=== PATIENT | female | born 1975 | race Hispanic/Latino ===

== ENCOUNTER 2024-07-12 21:45 | Emergency (ER) | payer BC, SELFPAY ==
[2024-07-12 21:49] VITALS: BP 110/66
[2024-07-12 22:05] LABS: % Basophils 0.3 % (0-2); % Eosinophils 0.8 % (0-6); % Immature Granulocytes 0.2 % (0-0.5); % Lymphocytes 35.4 % (20.5-51.1); % Monocytes 6.2 % (1.7-9.3); % Neutrophils 57.1 % (42.2-75.2); Absolute Eosinophils 0.1 10^3/uL (0-0.7); Absolute Lymphocytes 2.4 10^3/uL (1.2-3.4); Absolute Monocytes 0.4 10^3/uL (0.1-0.6); Absolute Neutrophils 3.8 10^3/uL (1.4-6.5); Hematocrit 36.7 % (37.0-47.0); Hemoglobin 12.2 g/dL (12.0-16.0); Mean Corp Hgb Conc. 33.2 g/dL (33.0-37.0); Mean Corpuscular Volume 93.1 fL (81.0-99.0); Nucleated Red Blood Cells % 0 %; Platelet Count 227 10^3/uL (130-400); Red Blood Cell Count 3.94 10^6/uL (4.20-5.40); White Blood Cell Count 6.6 10^3/uL (4.8-10.8)
[2024-07-12 22:23] LABS: HCG, Serum Qualitative Screen Negative
[2024-07-12 22:28] LABS: ALT (SGPT) 12 U/L (0-35); AST (SGOT) 18 U/L (14-36); Albumin 4.3 g/dl (3.5-5.0); Alkaline Phosphatase 50 U/L (38-126); Blood Urea Nitrogen 21 mg/dl (7-17); Calcium 9.4 mg/dl (8.4-10.2); Carbon Dioxide 28 mmol/L (22-30); Chloride 107 mmol/L (98-107); Glucose 120 mg/dl (70-99); Potassium 4.1 mmol/L (3.5-5.1); Sodium 141 mmol/L (135-145); Total Bilirubin 0.3 mg/dl (0.2-1.3); Total Protein 7.3 g/dl (6.3-8.2); eGFR > 60.00
[2024-07-13 00:26] VITALS: BMI 19.7
[2024-07-13 00:28] VITALS: BP 105/53
--- NOTE | 2024-07-13 00:42 | ED.GENMED ---
History of Present Illness
General
Chief Complaint: Vaginal Bleeding
Source: patient
Exam Limitations: none
Time Seen by Provider: 07/13/24 00:37
Nursing documentation reviewed up to this point in time: agreed with
History of Present Illness
History of Present Illness:
48-year-old female with a past medical history anxiety presents emergency department today with concerns of heavy vaginal bleeding x 1 day. Patient reports that she is premenopausal however she does state that she has somewhat regular periods with
cycle day of 28 and reports that she sees Dr. Dickerson for her OBGYN care. Patient reports that starting a few months ago, her periods have been a lot heavier. Patient was given TXA by her ACETALDEHYDE CONVERTER OPERATOR use as needed during her heavier periods. Patient
does report that this did help for some time however the last period that she had, this did not help with the heavy bleeding. Patient was then started on an estrogen patch patch as well as progesterone pills and she states that she started her
period today and the bleeding is just as heavier as it has been before. Patient does have some mild cramping associated with this. She denies any lightheadedness, dizziness. She denies any history of anemia. Patient is unsure of how many pads
she is changing in an hour.
Review of Systems
Review of Systems
All Other Systems: ROS reviewed and negative except as documented in HPI and ROS
Phy Exam
Physical Exam
Physical Exam:
General: Patient is well appearing and in no acute distress; non-toxic
Skin: Warm and dry, no rashes or lesions
Head: Normocephalic, atraumatic
Eyes: Sclera non-icteric. EOMs intact.
Cardiac: Regular rate and rhythm, no murmurs
Pulm: Normal respiratory effort
Abdomen: No abdominal tenderness to palpation
Genitourinary: No lesions of the external genitalia. [place] vaginal mucosa with no lesions. Bleeding noted within vaginal vault.
Neuro: CN II-XII intact, no focal neurologic deficits.
Psychiatric: Appropriate mood and affect.
Course
Orders/Labs/Results
Orders:
Orders
07/12/24 21:53
Test Result ONCE
07/12/24 21:58
Type+Screen Urgent
Complete Blood Count/With Diff Urgent
Comprehensive Metabolic Panel Urgent
HCG, Serum Qualitative Screen Urgent
07/12/24 22:11
ABO2 Urgent
BBK Wristband Number:
Associate notified that ABO2 has been ordered: [id number]
Date: 07/12/24
Time: 22:07
Coil Cutter ID: [id number]
07/13/24 01:03
US Transvaginal [US Pelvis W Transvag Combined] Urgent
Comment:
Reason For Exam: left sided pelvic pain
Abnormal Lab Results
07/12/24
21:58
RBC 3.94 L 10^6/uL
(4.20-5.40)
Hct 36.7 L %
(37.0-47.0)
MPV 11.0 H fL
(7.4-10.4)
BUN 21 H mg/dl
(7-17)
Glucose 120 H mg/dl
(70-99)
07/12/24 21:58
07/12/24 21:58
Vital Signs
Initial and Last Documented VS:
Initial Vital Signs
Temp Pulse Resp BP Pulse Ox
98.5 F 78 16 110/66 98
07/12/24 21:49 07/12/24 21:49 07/12/24 21:49 07/12/24 21:49 07/12/24 21:49
Last Documented Vital Signs
Temp Pulse Resp BP Pulse Ox
98.5 F 70 16 128/70 100
07/12/24 21:49 07/13/24 03:30 07/13/24 03:30 07/13/24 03:30 07/13/24 03:30
MDM/Problems Addressed
Differential Diagnosis Includes:
Differentials include menorrhagia, perimenopausal state, endometrial hyperplasia, uterine fibroid, ectopic , hemorrhagic cyst, malignancy
MDM/Problems Addressed:
48-year-old female with a past medical history anxiety presents emergency department today with concerns of heavy vaginal bleeding x 1 day. Patient reports that she is premenopausal however she does state that she has somewhat regular periods with
cycle day of 28 and reports that she sees Dr. Dickerson for her OBGYN care. She noted the start of her period today her heavy bleeding continued and was not improved with the progesterone. She does have a known fibroid and was concerned that it
could have grown in size. On physical exam she is well-appearing no acute distress her vitals are stable, she does have bleeding noted within the vaginal vault. Her hemoglobin is within normal limits. Her CMP is unremarkable. She is not
. Her transvaginal ultrasound reveals a fibroid causing mass effect on the cervical canal. Reviewed case with physician on-call from [facility] who has no additional recommendations at this time considering patient is already on
progesterone and recommends that patient call her ACETALDEHYDE CONVERTER OPERATOR as soon as office opens. On reassessment, patient is well-appearing, she continues to have heavy bleeding, I did want to recheck CBC to monitor hemoglobin however patient states that she does
not want any additional blood work and wants to go home and continue monitor her symptoms and she states that she will call her ACETALDEHYDE CONVERTER OPERATOR. I think this is reasonable. Patient is stable for discharge.
*Pulse Oximetry
Patient hypoxic: no
*Critical Care Note
Total Time (30-74mins, 75-104mins- exclusive of procedures): Not Applicable
Data Reviewed
Review of Other/Old Records Reveals: Records (No prior ER physician documentation or discharge summaries to review)
ED Attending Note
-
Portions of this chart may have been created with voice recognition software.� Occasional wrong word or��sound alike� substitutions may have occurred due to the inherent limitations of voice recognition software.
Discharge Plan
Departure
Patient Disposition: Home (Routine Discharge)
Date of Disposition: 07/13/24
Time of Disposition: 03:50
Patient with high blood pressure during this ER visit?: No
Condition: Good
Discharge Problem:
Perimenopausal menorrhagia, Uterine fibroid
Instructions: Uterine fibroids, Heavy periods - ED discharge instructions, BLOOD PRESSURE
Referrals:
Jaspreet Vega MD [Family Provider] -
Stand Alone Forms: Return to Work
Activity Restrictions/Additional Instructions:
Please call your ACETALDEHYDE CONVERTER OPERATOR office in the morning to schedule a follow-up appointment. Please show them ultrasound findings.
Please continue taking your progesterone as directed by your ACETALDEHYDE CONVERTER OPERATOR.
PLEASE RETURN EMERGENCY DEPARTMENT SHOULD YOU DEVELOP LIGHTHEADEDNESS, DIZZINESS, AND ACUTE WORSENING OF YOUR PAIN, BURNING WITH URINATION, CHEST PAIN, SHORTNESS OF BREATH, OR ANY OTHER SIGNS OR SYMPTOMS WORRISOME TO YOU.
Interventions
Interventions:
*Risk Screen - Suicide Last Done: 07/12/24 21:54
*General Assessment Last Done: 07/13/24 00:24
*Neglect/Abuse Screening Last Done: 07/12/24 21:54
*ED- Fall Risk Assessment Last Done: 07/13/24 00:23
*ED COVID-19 Vaccine History Last Done: 07/13/24 00:23
*Nursing Disposition Last Done: 07/13/24 03:55
ED-Female Genitourinary Assessment Last Done: 07/13/24 03:25
Discharge Date and Time
Discharge Date/Time: 07/13/24 03:55
Print Language: YI
[2024-07-13 02:32] VITALS: BP 100/58
[2024-07-13 03:30] VITALS: BP 128/70
== END 2024-07-13 03:55 | disposition home or self-care (01) ==
LOC: EMR 21:45
PROVIDERS: EMERGENCY PHYSICIAN Emergency Medicine; FAMILY PHYSICIAN Family Medicine
DX: N92.4 Excessive bleeding in the premenopausal period (principal); D25.9 Leiomyoma of uterus, unspecified
CPT/HCPCS: 99284; 76830; 76856; 80053; 84703; 85025; 86850; 86900; 86901

== ENCOUNTER 2024-12-25 19:02 | Observation (INO) | payer BC, SELFPAY ==
[2024-12-25] VITALS (11 sets, daily range): BP systolic 88–130; BP diastolic 47–92; BMI 21.6
[2024-12-25 13:02] LABS: Hematocrit 35.9 % (37.0-47.0); Hemoglobin 11.8 g/dL (12.0-16.0); Mean Corp Hgb Conc. 32.9 g/dL (33.0-37.0); Mean Corpuscular Volume 91.1 fL (81.0-99.0); Nucleated Red Blood Cells % 0 %; Platelet Count 308 10^3/uL (130-400); Red Cell Dist. Width 15.9 % (11.5-14.5)
[2024-12-25 13:13] LABS: HCG, Serum Qualitative Screen Negative
[2024-12-25 13:22] LABS: ALT (SGPT) 16 U/L (0-35); AST (SGOT) 20 U/L (14-36); Albumin 4.4 g/dl (3.5-5.0); Alkaline Phosphatase 36 U/L (38-126); Blood Urea Nitrogen 18 mg/dl (7-17); Calcium 9.2 mg/dl (8.4-10.2); Carbon Dioxide 26 mmol/L (22-30); Chloride 108 mmol/L (98-107); Glucose 120 mg/dl (70-99); Potassium 4.4 mmol/L (3.5-5.1); Sodium 137 mmol/L (135-145); Total Protein 7.6 g/dl (6.3-8.2); eGFR > 60.00
--- NOTE | 2024-12-25 13:50 | ED.GENMED ---
History of Present Illness
<Silke Rodriguez PA-C - Last Filed: 12/25/24 19:03>
General
Chief Complaint: Vaginal Bleeding
Source: patient and records
Exam Limitations: none
Time Seen by Provider: 12/25/24 13:37
History of Present Illness
History of Present Illness:
49yoF with a history of uterine fibroids presenting for evaluation of vaginal bleeding. Patient has been having ongoing issues with vaginal bleeding. She is scheduled to have a hysterectomy at [place] on 01/30/2025. She is maintained on
norethindrone 10 mg daily. She typically has spotting every day but only has to use a panty liner. Around noon today, she started to have worsening bleeding. She states the blood was 'pouring out of me.' She reports passing large clots and has
been saturating through a pad every 30 minutes. She also reports menstrual cramping and dizziness. No syncope. She called her solar lab technician who told her to increase the norethindrone to 20 mg and go to the ED for evaluation. She does not take
any blood thinners. She was seen in the ED in June 2024 for vaginal bleeding and ultrasound showed '5.1 x 2.1 x 2.6 cm mildly heterogeneous submucosal fibroid along the posterior lower uterine segment with local mass effect.'
Phy Exam
<Silke Rodriguez PA-C - Last Filed: 12/25/24 19:03>
General Physical Exam
General Presentation: well appearing and no apparent distress
General Skin: warm and dry
General Habitus: normal
General Mental: alert
ENT Exam
ENT Exam: normocephalic
Pulmonary Exam
Pulmonary Exam: no respiratory distress
Gastrointestinal Exam
Gastrointestinal Exam: non tender, soft and non distended
Genitourinary Exam Female
Exam Female: vaginal bleeding and other (Clots noted at introitus which were removed. Moderate amount of pooling noted on speculum exam.)
Neurological Exam
Neurological Exam: alert
Gonzalo Coma Scale
Eye Opening: Spontaneous
Verbal Response: Oriented
Motor Response: Obeys Commands
GCS Total Score: 15
Skin Exam
Skin Exam: normal color, warm/dry and other
Psychiatric Exam
Psychiatric Exam: normal mood/affect
Course
<Silke Marisela Rodriguez PA-C - Last Filed: 12/25/24 19:03>
Orders/Labs/Results
Orders:
Orders
12/25/24 12:31
Test Result ONCE
12/25/24 12:46
Atypical Antibody Screen Urgent
BBK Wristband Number:
Type And Crossmatch [Type+Screen] Urgent
Complete Blood Count/With Diff Urgent
Comprehensive Metabolic Panel Urgent
HCG, Serum Qualitative Screen Urgent
12/25/24 13:49
Pelvis & Transvaginal US [US Pelvis W Transvag Combined] Urgent
Comment:
Reason For Exam: vaginal bleeding
12/25/24 Dinner
NPO
Allow oral meds: Yes
Allow clear liquids: Sips of Clears
12/25/24 15:26
IV Insert/Care/Rem.- Treatment PRN
0.9% Sodium Chloride 1000 ml [Nss] 1,000 ml IV BOLUS
12/25/24 16:19
Consult MANAGER UNIT [MANAGER UNIT CONSULT] Urgent
Consulting Provider: Nora Zhang
Was physician already notified: Yes
12/25/24 16:24
Tranexamic Acid 1000 mg/100 ml [Tranexamic Acid] 1,000 mg in 100 ml IV ONCE
12/25/24 17:44
Admit Patient As Directed
Co-Sign Provider:
Level of Care: Observation services
Assign to:: Medical/Surgical
Physician / Group: [facility]
Diagnosis: Heavy Vaginal Bleeding Uterine Fibroid
Pneumatic Compression Sleeves As Directed
Type: Knee high
PRN Pain Medication Management As Directed
May give lesser potent ordered pain med per pt: Yes
preference::
Protocol:: Medication orders for pain may be administered in a
manner that supports deferring to patient preference
when the pt is:
- Requesting an ordered lesser potent pain medication.
Least to most potent pain medications are defined
as: acetaminophen < NSAID < tramadol < opioids
(morphine, oxycodone, hydromorphone).
- Requesting a lesser dose of the same medication IF
ORDERED.
- Requesting a less intrusive route of administration
if both routes are prescribed by the provider (PO <
IV).
12/25/24 17:45
DX Deep Vein Thrombosis Video Routine
12/25/24 17:57
H&H Stat
12/25/24 18:00
0.9% Sodium Chloride 1000 ml [Nss] 1,000 ml IV 125 mls/hr
12/25/24 18:03
Acetaminophen [Tylenol] 650 mg PO Q4HPRN PRN
Docusate Sodium [Colace] 100 mg PO BIDPRN PRN
Ibuprofen [Motrin] 600 mg PO Q6HPRN PRN
12/25/24 18:05
Quetiapine Fumarate [Seroquel] 12.5 mg PO HSPRN PRN anxiety
Zolpidem Tartrate [Ambien] 2.5 mg PO HS PRN sleep
12/25/24 18:47
Consult Interventional Radiology [IRAD CONSULT] Routine
Consulting Provider: Jerome Ribeiro
Was physician already notified: Yes
Procedure being ordered, including laterality if applicable: Uterine Artery Embolization
Acknowledgement that appropriate orders are entered: Yes
12/25/24 23:00
Tranexamic Acid [Cyklokapron] 1,300 mg PO TID
12/26/24 06:00
Complete Blood Count/No Diff IN AM
12/26/24 08:00
Escitalopram Oxalate [Lexapro] 10 mg PO DAILY
Abnormal Lab Results
12/25/24 12/25/24
12:46 17:57
RBC 3.94 L 10^6/uL
(4.20-5.40)
Hgb 11.8 L g/dL 9.1 L D g/dL
(12.0-16.0) (12.0-16.0)
Hct 35.9 L % 27.4 L %
(37.0-47.0) (37.0-47.0)
MCHC 32.9 L g/dL
(33.0-37.0)
RDW 15.9 H %
(11.5-14.5)
MPV 11.2 H fL
(7.4-10.4)
Absolute Neuts (auto) 6.8 H 10^3/uL
(1.4-6.5)
Chloride 108 H mmol/L
(98-107)
BUN 18 H mg/dl
(7-17)
Glucose 120 H mg/dl
(70-99)
Alkaline Phosphatase 36 L U/L
(38-126)
12/25/24 17:57
12/25/24 12:46
Vital Signs
Initial and Last Documented VS:
Initial Vital Signs
Temp Pulse Resp BP Pulse Ox
98.6 F 115 20 130/82 99
12/25/24 12:34 12/25/24 12:34 12/25/24 12:34 12/25/24 12:34 12/25/24 12:34
Last Documented Vital Signs
Temp Pulse Resp BP Pulse Ox
98.4 F 82 13 100/74 100
12/25/24 18:00 12/25/24 18:00 12/25/24 18:00 12/25/24 18:00 12/25/24 18:00
<Scooter Garner MD - Last Filed: 12/25/24 18:26>
Orders/Labs/Results
Orders:
Orders
12/25/24 12:31
Test Result ONCE
12/25/24 12:46
Atypical Antibody Screen Urgent
BBK Wristband Number:
Type And Crossmatch [Type+Screen] Urgent
Complete Blood Count/With Diff Urgent
Comprehensive Metabolic Panel Urgent
HCG, Serum Qualitative Screen Urgent
12/25/24 13:49
Pelvis & Transvaginal US [US Pelvis W Transvag Combined] Urgent
Comment:
Reason For Exam: vaginal bleeding
12/25/24 Dinner
NPO
Allow oral meds: Yes
Allow clear liquids: Sips of Clears
12/25/24 15:26
IV Insert/Care/Rem.- Treatment PRN
0.9% Sodium Chloride 1000 ml [Nss] 1,000 ml IV BOLUS
12/25/24 16:19
Consult MANAGER UNIT [MANAGER UNIT CONSULT] Urgent
Consulting Provider: Nora Zhang
Was physician already notified: Yes
12/25/24 16:24
Tranexamic Acid 1000 mg/100 ml [Tranexamic Acid] 1,000 mg in 100 ml IV ONCE
12/25/24 17:44
Admit Patient As Directed
Co-Sign Provider:
Level of Care: Observation services
Assign to:: Medical/Surgical
Physician / Group: De [employer]
Diagnosis: Heavy Vaginal Bleeding Uterine Fibroid
Pneumatic Compression Sleeves As Directed
Type: Knee high
PRN Pain Medication Management As Directed
May give lesser potent ordered pain med per pt: Yes
preference::
Protocol:: Medication orders for pain may be administered in a
manner that supports deferring to patient preference
when the pt is:
- Requesting an ordered lesser potent pain medication.
Least to most potent pain medications are defined
as: acetaminophen < NSAID < tramadol < opioids
(morphine, oxycodone, hydromorphone).
- Requesting a lesser dose of the same medication IF
ORDERED.
- Requesting a less intrusive route of administration
if both routes are prescribed by the provider (PO <
IV).
12/25/24 17:45
DX Deep Vein Thrombosis Video Routine
12/25/24 17:57
H&H Stat
12/25/24 18:00
0.9% Sodium Chloride 1000 ml [Nss] 1,000 ml IV 125 mls/hr
12/25/24 18:03
Acetaminophen [Tylenol] 650 mg PO Q4HPRN PRN
Docusate Sodium [Colace] 100 mg PO BIDPRN PRN
Ibuprofen [Motrin] 600 mg PO Q6HPRN PRN
12/25/24 18:05
Quetiapine Fumarate [Seroquel] 12.5 mg PO HSPRN PRN anxiety
Zolpidem Tartrate [Ambien] 2.5 mg PO HS PRN sleep
12/25/24 18:47
Consult Interventional Radiology [IRAD CONSULT] Routine
Consulting Provider: Jerome Ribeiro
Was physician already notified: Yes
Procedure being ordered, including laterality if applicable: Uterine Artery Embolization
Acknowledgement that appropriate orders are entered: Yes
12/25/24 23:00
Tranexamic Acid [Cyklokapron] 1,300 mg PO TID
12/26/24 06:00
Complete Blood Count/No Diff IN AM
12/26/24 08:00
Escitalopram Oxalate [Lexapro] 10 mg PO DAILY
Abnormal Lab Results
12/25/24 12/25/24
12:46 17:57
RBC 3.94 L 10^6/uL
(4.20-5.40)
Hgb 11.8 L g/dL 9.1 L D g/dL
(12.0-16.0) (12.0-16.0)
Hct 35.9 L % 27.4 L %
(37.0-47.0) (37.0-47.0)
MCHC 32.9 L g/dL
(33.0-37.0)
RDW 15.9 H %
(11.5-14.5)
MPV 11.2 H fL
(7.4-10.4)
Absolute Neuts (auto) 6.8 H 10^3/uL
(1.4-6.5)
Chloride 108 H mmol/L
(98-107)
BUN 18 H mg/dl
(7-17)
Glucose 120 H mg/dl
(70-99)
Alkaline Phosphatase 36 L U/L
(38-126)
12/25/24 17:57
12/25/24 12:46
Vital Signs
Initial and Last Documented VS:
Initial Vital Signs
Temp Pulse Resp BP Pulse Ox
98.6 F 115 20 130/82 99
12/25/24 12:34 12/25/24 12:34 12/25/24 12:34 12/25/24 12:34 12/25/24 12:34
Last Documented Vital Signs
Temp Pulse Resp BP Pulse Ox
98.4 F 82 13 100/74 100
12/25/24 18:00 12/25/24 18:00 12/25/24 18:00 12/25/24 18:00 12/25/24 18:00
Dustinlt;Silke Rodriguez PA-C - Last Filed: 12/25/24 19:03>
MDM/Problems Addressed
Differential Diagnosis Includes:
49yoF here with heavy vaginal bleeding that started abruptly at noon today. Going through pads every 30 minutes. Hx of fibroids and maintained on norethindrone 10mg daily. Has hysterectomy scheduled on 01/30. HR 115 in triage. BP stable. Nursing
staff reports that large clots were passed while in triage. Patient awake, alert, and non-toxic appearing. Moderate amount of vaginal bleeding on exam. Differential diagnosis includes: dysfunctional uterine bleeding, fibroids, acute blood loss anemia
Initial ED plan: Labs obtained in triage and hemoglobin is 11.8. Will check pelvic ultrasound.
<Silke Rodriguez PA-C - Last Filed: 12/25/24 19:03>
*Pulse Oximetry
SaO2: 99
Oxygen Mode of Delivery: Room air
Patient hypoxic: no
*Critical Care Note
Total Time (30-74mins, 75-104mins- exclusive of procedures): Not Applicable
<Silke Rodriguez PA-C - Last Filed: 12/25/24 19:03>
Update Note
Update Note:
Patient reassessed several times and started to pass clots again. She is feeling worse and more weak/dizzy. OBGYN contacted for consult and 1g IV TXA ordered. Shortly after TXA given, patient had a near syncopal episode. Dr. Zhang assessed patient
at bedside. Patient being admitted for further treatment.
ED Attending Note
<Silke Rodriguez PA-C - Last Filed: 12/25/24 19:03>
-
Portions of this chart may have been created with voice recognition software.� Occasional wrong word or��sound alike� substitutions may have occurred due to the inherent limitations of voice recognition software.
<Scooter Garner MD - Last Filed: 12/25/24 18:26>
ED Attending Note
Patient seen and examined by attending physician: Yes
ED Attending Note:
I have seen and evaluated the patient with a [id number] encounter. I have spoken to the advance practicer provider and involved in the medical history, the physical exam, medical decision making.
Evaluation and management service: agree unless noted differently below.
Results interpretation: agree unless noted differently below.
Focused HPI: 49-year-old female presents for evaluation of vaginal bleeding. She has a history of fibroids and is actually scheduled to have a hysterectomy in the future. Has had increased vaginal bleeding recently over the past few days, passing
clots as well. She does have some mild cramping. Came to the ER for evaluation.
Physical exam: Awake and alert not in distress. Tachycardic but otherwise normal vitals. Abdomen soft minimally tender in the lower abdomen.
Medical Decision Makin-year-old female presents for evaluation of abnormal vaginal bleeding. Vitals and exam as above. Pelvic ultrasound showed uterine fibroids. She did have slight drop in hemoglobin initial labs and is quite tachycardic.
Plan to trend hemoglobin. Discussed with MANAGER UNIT they will admit for continued care.
Discharge Plan
Departure
Patient Disposition: Admit
Date of Disposition: 12/25/24
Time of Disposition: 17:31
Presentation/result/management discussed w/ accepting /DO: Dr. Zhang
Discharge Problem:
Dysfunctional uterine bleeding, Uterine fibroid
Prescriptions:
No Action
zolpidem [Ambien] 5 mg Tablet
2.5 mg PO HS PRN (Reason: sleep)
quetiapine [Seroquel] 25 mg Tablet
12.5 mg PO HSPRN PRN (Reason: anxiety)
vitamin B complex [B Complete] Tablet
1 tab PO DAILY
escitalopram oxalate [Lexapro] 10 mg Tablet
10 mg PO DAILY
rosuvastatin [Crestor] 5 mg Tablet
5 mg PO HS
Visbiome 112.5 billion cell Capsule
1 cap PO DAILY
vitamin D3-vitamin K2 125 mcg (5,000 unit)-100 mcg Capsule
1 cap PO DAILY
medroxyprogesterone 5 mg Tablet
10 mg PO DAILY
ibuprofen [Advil] 200 mg Tablet
200 mg PO DAILYPRN PRN (Reason: mild pain)
Referrals:
Jaspreet Vega MD [Family Provider, Family Practice]
Interventions
Interventions:
*Risk Screen - Suicide Last Done: 12/25/24 13:57
*General Assessment Last Done: 12/25/24 14:07
*Neglect/Abuse Screening Last Done: 12/25/24 13:56
*ED- Fall Risk Assessment Last Done: 12/25/24 13:56
*ED COVID-19 Vaccine History Last Done: 12/25/24 14:07
*ED Influenza Vaccine History Last Done: 12/25/24 14:07
ED-Female Genitourinary Assessment Last Done: 12/25/24 13:57
Discharge Date and Time
Print Language: [email or web address]
[2024-12-25] MEDS: NSS 1000 IV ×2 (15:34→18:33)
[2024-12-25] MEDS: TRANEXAMIC ACID 100 IV (16:33)
[2024-12-25 18:08] LABS: Hematocrit 27.4 % (37.0-47.0); Hemoglobin 9.1 g/dL (12.0-16.0)
--- NOTE | 2024-12-25 18:08 | HPS.HSE ---
Family Physician
-
Family Physician: Jaspreet Vega
Chief Complaint
-
Heavy Vaginal Bleeding
History of Present Illness
49yo presents to the ER due to c/o heavy vaginal bleeding that started early this afternoon. She is a patient of Dr. Mary Dickerson in [place] and has known submucosal fibroid. She states she had a D&C hysteroscopy about 2 years ago at
which point most of the fibroid was removed. She states after this procedure she had no bleeding issues for 6 months, then had return of AUB and was started on norethindrone 5mg. This helped to control her bleeding until about 06/2024 when she had
another heavy bleeding episode and was seen here in the ER. She was noted to have a 5cm submucosal fibroid. Her WINDER FIXER then increased her to 10mg Norethindrone daily. Of note, she also has uterine prolapse and is being followed by Dr. Sudhir Rivera-
UroGyn. She is scheduled for hysterectomy and pelvic floor repair in 01/2025.
When her bleeding became heavy today, she states the blood was pouring out of her. She took an additional 10mg of norethindrone (total 20mg for the day today) but this did not help so she presented to the ER. She felt dizzy, light headed, nauseous.
Also having period like cramping.
Medical History
Past Medical History
Past Medical History: Reports Hypercholesterolemia and Other (Anxiety, Chronic Constipation, Uterine Prolapse.)
Past Surgical History: Reports Gynocological (D&C Hysteroscopy with partial myomectomy approx 2022)
Social History
Tobacco: Non-smoker
Drug: None
Family History
Family History: Not pertinent
Allergies / Home Medications
Allergies reflects when Allergies were last updated in [facility].
Home Medications with original date entered in [facility]
Allergy/Medication List:
NKDA
Meds listed in Med List
Review of Systems
-
History Source: Patient
Abdomen/GI: Reports Nausea
Neurological: Reports Dizzy
Hematologic/Lymphatic: Reports Bleeding
Physical Exam
Vital Signs
Vital Signs
Temp Pulse Resp BP Pulse Ox
97.9 F 87 16 115/47 100
12/25/24 15:37 12/25/24 17:00 12/25/24 17:00 12/25/24 17:00 12/25/24 17:00
On presentation BP 120/82> 127/92> 107/66. When I first entered the room it was 88/58
Physical Exam
General: Well Developed, No Apparent Distress and Other (Appears pale)
GI: Soft, Non Tender and Non Distended
Genito-urinary: Vaginal Bleeding (Her pad is full with some clots present. On speculum exam there is a slow trickle of blood at the cervix. No further clots seen inside the vagina. On bimanual exam her cervix is 1cm dilated and just within the os, I
am able to palpate what I suspect is the inferior portion of the fibroid.)
Laboratory Results
-
12/25/24 12:46
Laboratory Results
Total Bilirubin 0.5 mg/dl (0.2-1.3) 12/25/24 12:46
AST 20 U/L (14-36) 12/25/24 12:46
ALT 16 U/L (0-35) 12/25/24 12:46
Alkaline Phosphatase 36 U/L (38-126) L 12/25/24 12:46
CBC on presentation: WBC 10
H/H: 11.8/35.9
Plt: 308
Repeat H/H @ 5:50pm: 9.1/27.4
Data Reviewed
-
Ultrasound: Report Reviewed by me, Discussed with Patient and Other (U/S: Uterus 13x 5.9x 6.1cm. EMS 6-7mm. RUBÉN anterior submucosal fibroid 6x 3.5x 4.1cm. Left fundal fibroid 2.1x 2.2x 1.8cm. Right ovary 3.8cm Left Ovary 2.6cm)
Lab Data: Labs Reviewed by me
Impression/Plan
-
IMPRESSION: 49yo with Heavy Vaginal Bleeding resulting in anemia 2/2 large submucosal fibroid
PLAN:
-Explained to patient given the extent of her bleeding she should be admitted at least for observation to monitor her bleeding.
-IV TXA 1g given in the ER and I will continue with this therapy 1300mg PO TID. In addition I d/w I.R if there is a role for UAE for this patient to help slow her bleeding as she awaits her surgery. Dr. Ribeiro was able to review her imaging and
feels this is possible. This was d/w the patient who is willing to proceed. She will also secondarily speak with her surgeon to see if the procedure can be moved up given her situation.
-Her H/H has dropped since presentation, now at 9.1. I will continue to monitor, if bleeding does not slow, she is hemodynamically unstable and/or repeat Hgb is <8, then d/w patient that I will start a blood transfusion- she is agreeable to this.
-Regular diet now but IVF/NPO after midnight for possible UAE tomorrow.
-continue home anxiety medications
-DVT ppx, OOB to bathroom & SCDs
-motrin/tylenol prn for pain
--- NOTE | 2024-12-25 18:41 | PTCARENOTE ---
s/p IV TXA administration pt became pale and diaphoretic with a soft bp. providers made aware, obgy arriving to bedside at that moment. pt provided remainder of 1L NSS bolus and placed into Trendelenburg position. + results noted s/p
interventions. BP increased and color returned. plan of care followed.
--- NOTE | 2024-12-25 19:10 | W.PN.UPDATE ---
Update Note
Progress Note Update
Reevaluated patient approximately 1.5hours after my initial exam. She says she feels okay, No longer feeling blood/clots coming out of her.
Vitals: 115/47 P87 R16
Gen: She appears much better. She is no longer pale in appearance, there is pink to her cheeks.
On evaluation of her pad (same one that she changed into when I was in the room last), it is about 1/5 covered in blood. Significant improvement from when she presented.
Explained again the plan of action. To continue with oral TXA, and hopeful for UAE tomorrow (or Thursday). Someone from I.R team will review the procedure in more detail with her tomorrow.
[2024-12-25] MEDS: FEOSOL 325 MG PO (20:13)
[2024-12-25] MEDS: XANAX 0.25 MG PO (22:59)
[2024-12-25] MEDS: CYKLOKAPRON 1300 MG PO (22:59)
--- NOTE | 2024-12-25 23:29 | PTCARENOTE ---
knee high pneumatic compression sleeves placed on patient @ 2215. Patient refused, verbalizing she will not be able to sleep. Nurse explained importance of compression sleeves to prevent DVT's. Patient verbalized understanding, continues to refuse.
Nurse informed patient a video has been ordered for her to watch regarding DVT prevention. Patient acknowledged.
--- NOTE | 2024-12-25 23:33 | PTCARENOTE ---
patient with B/L hearing aides. Patient verbalized she can hear without them but clarity is not good.
--- NOTE | 2024-12-25 23:35 | PTCARENOTE ---
Patient OOB to bathroom with assist @ 0070. No change in vaginal bleeding noted on pad. Same pad when arrived from ED. Felecia pad changed.
[2024-12-26] MEDS: NSS 1000 IV (02:15)
[2024-12-26 03:30] VITALS: BP 112/55
--- NOTE | 2024-12-26 03:33 | PTCARENOTE ---
patient OOB to bathroom. Voided however 'missed' the hat to measure.
[2024-12-26 06:14] LABS: Hematocrit 25.7 % (37.0-47.0); Hemoglobin 8.3 g/dL (12.0-16.0); Mean Corp Hgb Conc. 32.3 g/dL (33.0-37.0); Mean Corpuscular Volume 93.8 fL (81.0-99.0); Platelet Count 213 10^3/uL (130-400); Red Cell Dist. Width 15.9 % (11.5-14.5)
[2024-12-26 06:53] LABS: INR 1.18; PT 15.3 Sec (11.4-14.6)
[2024-12-26 06:54] LABS: APTT 26.6 Sec (23.4-35.0)
[2024-12-26 07:55] VITALS: BP 105/61
[2024-12-26] MEDS: TYLENOL 650 MG PO (08:04)
[2024-12-26] MEDS: FEOSOL 325 MG PO (08:05)
[2024-12-26] MEDS: LEXAPRO 10 MG PO (08:05)
[2024-12-26] MEDS: CYKLOKAPRON 1300 MG PO (08:05)
--- NOTE | 2024-12-26 09:32 | W.PN.OBG.DWH ---
Today's Communication / Plan
-
-Discuss UAE with patient, with plans to do today.
Assessment/Plan
-
49 yo w/AUB secondary to leiomyomatous uterus and subsequent anemia.
-Plan for UAE with IR.
-Pt has questions regarding procedure, and request to speak with IR prior to procedure.
-Discussed that patient cannot remain on TXA until her surgery date.
-Discharge will be pending procedure, likely within 24-48h.
Subjective Data
-
Sigrid is feeling well this morning. Spoke with surgeon and able to have hysterectomy date moved to 01/24/25. She states bleeding is scant this morning. Denies lightheadedness, SOB, and CP.
Objective Data
-
Laboratory Results
12/26/24 05:55
12/25/24 12:46
Vital Signs
Temp Pulse Resp BP Pulse Ox
98.7 F 85 16 105/61 99
12/26/24 07:55 12/26/24 07:55 12/26/24 07:55 12/26/24 07:55 12/25/24 19:00
--- NOTE | 2024-12-26 10:08 | W.PN.UPDATE ---
Update Note
Progress Note Update
Discussed UFE procedure with patient and her . She had questions about post procedure pain and recovery time. I told her everyone gets some post embolization pain, but it can be controlled with medication, and that most people leave the
hospital the day after the procedure.
All questions answered. At this time, she would prefer to undergo her planned surgical procedure so she only has to recover once. I explained that that would be preferable, as long as her bleeding can be controlled in the meantime. I explained that
UFE is available whenever it's needed, and that if she has another bleeding episode, UFE could be pursued at that time. She understands and wishes to not undergo UFE at this time.
--- NOTE | 2024-12-26 10:14 | W.PN.UPDATE ---
Update Note
Progress Note Update
Patient spoke with IR and has decided she would not like the UAE. She is hoping to make it to her surgery date and does not want the additional recovery from another procedure.
-Discussed repeating Hgb at 1400 given Hgb went from 9.1 to 8.3 (likely dilutional)
-Regular diet, d/c IVF
-Will plan for discharge with PO TXA x5days.
-Reviewed reasons to call and return to ED.
[2024-12-26 12:10] VITALS: BP 104/64
[2024-12-26 14:20] LABS: Hematocrit 26.0 % (37.0-47.0); Hemoglobin 8.6 g/dL (12.0-16.0); Mean Corp Hgb Conc. 33.1 g/dL (33.0-37.0); Mean Corpuscular Volume 90.0 fL (81.0-99.0); Platelet Count 235 10^3/uL (130-400); Red Cell Dist. Width 15.9 % (11.5-14.5)
--- NOTE | 2024-12-26 14:22 | W.PN.UPDATE ---
Update Note
Progress Note Update
Sigrid continues to feel well. Tolerated breakfast and lunch without issue. Repeat Hgb improved to 8.6. Discussed given her stable hgb and asymptomatic, patient stable for discharge. Recommend that she be seen by primary Freight Forwarder in 1-2 weeks. Will
continue TXA for full 5 days. Discussed return precautions.
--- NOTE | 2024-12-26 14:47 | PTCARENOTE ---
pt discharged to home, int removed from right ac without problems. pt able to drive self home per dr lara. pt left via wheelchair.
== END 2024-12-26 14:51 | disposition home or self-care (01) ==
LOC: LDRP 19:02
PROVIDERS: Emergency Medicine; Obstetrics & Gynecology; ADMITTING PHYSICIAN Obstetrics & Gynecology; EMERGENCY PHYSICIAN Emergency Medicine; FAMILY PHYSICIAN Family Medicine
DX: D25.0 Submucous leiomyoma of uterus (principal); N93.9 Abnormal uterine and vaginal bleeding, unspecified; D64.9 Anemia, unspecified; R42 Dizziness and giddiness; R10.9 Unspecified abdominal pain; N93.8 Other specified abnormal uterine and vaginal bleeding; F41.9 Anxiety disorder, unspecified; E78.00 Pure hypercholesterolemia, unspecified; K59.09 Other constipation; R11.0 Nausea; Z86.018 Personal history of other benign neoplasm; Z79.899 Other long term (current) drug therapy
CPT/HCPCS: 76830; 76856; 80053; 84703; 85014; 85018; 85025; 85027; 85610; 85730; 86850; 86900; 86901; 96361; 96374; 99285